=== PATIENT | male | born 1990 | race Caucasian/White ===

== ENCOUNTER 2018-10-02 15:55 | Emergency (ER) | payer BC ==
[2018-10-02] MEDS ORDERED: MORPHINE SULFATE 4 MG/ML SYRINGE IVP STA (16:06)
[2018-10-02] MEDS ORDERED: ONDANSETRON 4 MG/2 ML VIAL IVP STA (16:28)
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
[2018-10-02 16:48] LABS: Glucose,Whole Blood 124 mg/dL (75-99)
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
[2018-10-02 18:05] VITALS: BP 126/83; PULSE 72; RESP 16
[2018-10-02 18:07] VITALS: TEMP 97.8
== END 2018-10-02 18:07 | disposition home or self-care (01) ==
LOC: EC 15:55
DX: M25.512 Pain in left shoulder (principal); R29.818 Other symptoms and signs involving the nervous system; R55 Syncope and collapse; V84.5XXA Driver of special agricultural vehicle injured in nontraffic accident, initial encounter; Y93.89 Activity, other specified; Y92.89 Other specified places as the place of occurrence of the external cause
CPT/HCPCS: 36415; 73030; 71046; 72125; 70450; 99284; 96374; 96375; L3670; J2270; J2405